=== PATIENT | male | born 1995 ===

== ENCOUNTER 2024-12-15 15:07 | Emergency (ER) | payer OTHER ==
[~2024-12-15] VITALS: Ht 170.2 cm; Wt 75.4 kg
[2024-12-15] MEDS: AMOX TR/POT CLAV 875 MG/125 MG TABLET PO ONE (16:03)
[2024-12-15] MEDS: PERTUSS(ACELL),DIPH,TET/PF 0.5 ML SYRINGE [ADULT] IM. ONE (16:03)
[2024-12-15] MEDS: ACETAMINOPHEN 500 MG TABLET PO ONE (16:03)
[2024-12-15] MEDS: BACITRACIN 0.9 GM PACKET OINTMENT TP ONE (16:04)
[2024-12-15 16:35] VITALS: BP 114/63; PULSE 97; RESP 18; TEMP 98.1; O2SAT 95
== END 2024-12-15 16:52 ==
LOC: EMS 15:07
DX: S31.153A Open bite of abdominal wall, right lower quadrant without penetration into peritoneal cavity, initial encounter (principal); S71.151A Open bite, right thigh, initial encounter; W54.0XXA Bitten by dog, initial encounter; Y93.89 Activity, other specified; Y92.89 Other specified places as the place of occurrence of the external cause; Y99.8 Other external cause status
CPT/HCPCS: 90715; 99282